=== PATIENT | female | born 1995 | race Caucasian/White ===

== ENCOUNTER → 2022-08-29 07:41 | Outpatient (CLI) | payer OTHER, SELFPAY ==
--- NOTE | 2022-08-29 07:47 | DI.US.S_ITS ---
LIMITED ULTRASOUND OF LEFT BREAST: 08/29/2022 CLINICAL: Lump on left breast. No prior exams were available for comparison. Color flow and real-time ultrasound of the left breast 11-2 o'clock region were performed. Rangel scale images of the real-time examination were reviewed. No significant abnormalities were seen sonographically in the left breast in the regions of concern. Scattered areas of fibroglandular tissue. IMPRESSION: NEGATIVE There is no sonographic evidence of malignancy. Exam findings were conveyed to the patient. Patient is advised to monitor for significant change. Clinical follow-up as needed. Recommend screening mammogram, usually to commence at age 40. This exam was interpreted at Station ID: [id number]. Electronically Signed By: Nate Oviedo M.D. [facility] [place]/:08/29/2022 08:34:43 letter sent: Normal Exam Ultrasound BI-RADS: 1 Negative
== END ==
PROVIDERS: PCP Family Medicine; Referring Provider Family Medicine; Visit Provider Family Medicine
DX: N63.25 Unspecified lump in the left breast, overlapping quadrants (principal); N60.19 Diffuse cystic mastopathy of unspecified breast
CPT/HCPCS: 76642

== ENCOUNTER → 2022-12-26 15:09 | Outpatient (CLI) | payer OTHER, SELFPAY ==
--- NOTE | 2022-12-26 15:11 | DI.US.S_ITS ---
PROCEDURE: US PELVIC COMPLETE INDICATIONS: hx ovarian cyst TECHNIQUE: Real-time scanning was performed of the pelvic organs, with image documentation. Additional endovaginal scanning was necessary due to incomplete visualization of the adnexal and endometrial structures by transabdominal scanning. COMPARISON: None. FINDINGS: Uterus: Uterus is anteverted and normal in size at 8.3 x 4.1 x 4.9 cm. The myometrium is homogeneous. The endometrium measures 3 mm combined thickness. An IUD is present in the uterine cavity. Ovaries: The right ovary measures 6.8 x 4.4 x 6.1 cm, with a calculated ovarian volume of 94 cc. A simple appearing right ovarian cyst is present measuring 5.9 x 3.6 x 5.4 cm. Blood flow is visualized within the right ovarian parenchyma on Doppler imaging. The left ovary is not visualized. Other: No pathologic free abdominal or pelvic fluid. IMPRESSION: 1. A 5.9 cm simple appearing cyst is present in the right ovary. Per SRU guidelines, imaging follow-up is not necessary for this finding in in asymptomatic patient. However imaging follow-up could be obtained if clinically indicated, for example in 2-6 months or other interval at clinical discretion. Of note, presence of this finding could potentially predispose the patient to adnexal torsion. 2. The left ovary is not visualized, could be related to bowel gas. 3. An IUD is present in the uterine cavity. We strive to produce accurate, complete, and clear reports of imaging services. To assist us in improving patient care, this report was composed using standard report templates and voice recognition software. Therefore, it may contain abnormal punctuation, insertions and/or omissions. Occasional wrong-word or sound-alike substitutions may occur. Though we review the report and make efforts to correct it, we do recommend that the report be read carefully in proper context to recognize any text inaccuracies. Dictated by: Oswaldo Whatley M.D. on 12/26/2022 at 20:08 Approved by: Oswaldo Whatley M.D. on 12/26/2022 at 20:18
== END ==
PROVIDERS: PCP Family Medicine; Referring Provider Student in an Organized Health Care Education/Training Program; Visit Provider Student in an Organized Health Care Education/Training Program
DX: N83.201 Unspecified ovarian cyst, right side (principal)
CPT/HCPCS: 76830; 76856; 93976

== ENCOUNTER → 2023-02-04 15:53 | Outpatient (CLI) | payer OTHER, SELFPAY ==
[2023-02-04 17:39] LABS: Add Manual Diff / Slide Review NO; Basophils Absolute Auto 100 /uL (0-100); Eosinophils Absolute Auto 200 /uL (0-450); Eosinophils Percent Auto 1.6 % (2-4); Hematocrit 44.6 % (36-46); Hemoglobin 15.5 g/dL (12.0-16.0); Lymphocytes Absolute Auto 2900 /uL (1100-4500); Lymphocytes Percent Auto 24.9 % (25-40); Mean Corpuscular HGB Conc 34.7 % (30-36); Mean Corpuscular Hemoglobin 29.5 PG (26-34); Mean Corpuscular Volume 85.1 fL (80-100); Monocytes Absolute Auto 700 /uL (0-900); Monocytes Percent Auto 5.6 % (3-14); Neutrophils Absolute Auto 7900 /uL (1500-7000); Neutrophils Percent Auto 66.9 % (50-75); Platelet Count 283 X10^3/uL (150-400); Red Blood Cell Count 5.24 X10^6/uL (4.0-5.2); Red Cell Distribution Width 12.9 % (11.6-14.8); White Blood Cell Count 11.8 X10^3/uL (4.5-11.0)
== END ==
PROVIDERS: PCP Family Medicine; Referring Provider Student in an Organized Health Care Education/Training Program; Visit Provider Student in an Organized Health Care Education/Training Program
DX: Z31.69 Encounter for other general counseling and advice on procreation (principal)
CPT/HCPCS: 85025

== ENCOUNTER → 2023-09-11 10:32 | Outpatient (CLI) | payer OTHER, SELFPAY ==
[2023-09-11 11:44] LABS: Appearance Urine UA SL CLOUDY; Bilirubin Urine UA NEGATIVE (NEGATIVE); Color Urine UA YELLOW; Glucose Urine UA NEGATIVE (Negative); Ketones Urine UA TRACE (NEGATIVE); Leukocyte Esterase Urine UA 1+ (NEGATIVE); Nitrite Urine UA NEGATIVE (Negative); Occult Blood Urine UA NEGATIVE (Negative); Protein Urine UA NEGATIVE (Negative); Urobilinogen Urine UA 0.2 E.U./dL (0.2)
[2023-09-11 11:52] LABS: pH Urine UA 6.5 (4.5-8.0)
[2023-09-11 11:54] LABS: Add Manual Diff / Slide Review NO; Basophils Absolute Auto 0 /uL (0-100); Basophils Percent Auto 0.3 % (0-2); Eosinophils Absolute Auto 200 /uL (0-450); Eosinophils Percent Auto 1.8 % (2-4); Hematocrit 38.2 % (36-46); Hemoglobin 13.2 g/dL (12.0-16.0); Lymphocytes Absolute Auto 2000 /uL (1100-4500); Lymphocytes Percent Auto 17.3 % (25-40); Mean Corpuscular HGB Conc 34.7 % (30-36); Mean Corpuscular Hemoglobin 29.7 PG (26-34); Mean Corpuscular Volume 85.7 fL (80-100); Monocytes Absolute Auto 500 /uL (0-900); Monocytes Percent Auto 3.9 % (3-14); Neutrophils Absolute Auto 8900 /uL (1500-7000); Neutrophils Percent Auto 76.7 % (50-75); Platelet Count 218 X10^3/uL (150-400); Red Blood Cell Count 4.45 X10^6/uL (4.0-5.2); Red Cell Distribution Width 13.2 % (11.6-14.8); White Blood Cell Count 11.6 X10^3/uL (4.5-11.0)
[2023-09-11 12:00] LABS: Bacteria Urine Few (2-10); RBC Urine 1-5/HPF (0-5/HPF); Squamous Epithelial Cell Urine 5-10 /HPF (0-5/HPF); Urine Volume 10mL (spun); WBC Urine 5-10/HPF (0-5/HPF)
[2023-09-11 12:01] LABS: Mucus Urine 2+ (Negative)
[2023-09-12 06:14] LABS: RPR Screen Non Reactive (Non Reactive)
[2023-09-12 08:12] LABS: Varicella IgG Antibody 1728 index (Immune >165)
== END ==
LOC: LAB 10:33
PROVIDERS: PCP Family Medicine; Referring Provider Student in an Organized Health Care Education/Training Program; Visit Provider Student in an Organized Health Care Education/Training Program
DX: Z34.00 Encounter for supervision of normal first pregnancy, unspecified trimester (principal)
CPT/HCPCS: 36415; 80055; 81003; 81015; 86787; 86803; 86850; 86900; 86901; 87086; 87389

== ENCOUNTER → 2023-11-16 12:36 | Outpatient (CLI) | payer OTHER, SELFPAY ==
--- NOTE | 2023-11-16 12:37 | DI.US.S_ITS ---
PROCEDURE: US OB >= 14 WEEKS FETUS INDICATIONS: 20 week anatomy Scan OUTSIDE/PRIOR DATING DATA: The calculations are made using the FAWAD of 04/03/2024. TECHNIQUE: Real-time scanning was performed of the fetus, with image documentation and biometric measurements. Endovaginal scanning: Not performed COMPARISON: None. FINDINGS: General: A single living intrauterine gestation is present. Presentation: Variable. Placenta: Placental position is anterior , without previa. Amniotic fluid index: 12.8 cm, normal range is 5-24 cm. Single deepest vertical pocket is 5.2 cm. heart rate: 163 beats per minute. Maternal cervical canal: 5.6 cm long. Normal lower limit is 2.5 cm. biometrics: Biparietal diameter: 4.6 cm, 19 weeks 6 days Head circumference: 16.9 cm, 19 weeks 4 days Abdominal circumference: 16.4 cm, 21 weeks 3 days Femur length: 3.4 cm, 20 weeks 3 days Clinically estimated gestational age: 20 weeks 1 day Composite gestational age from present scan: 20 weeks 2 days Estimated weight and percentile: 379 g, 82 percentile Anatomic survey: Neuro: Ventricles are non-dilated at less than 10 mm. Cisterna magna is normal at 3-11 mm. Cerebellum is normal in size and morphology. Nuchal skin fold: Normal at less than 6 mm between 14-21 weeks gestational age. Face: Nose and lips, facial profile are normal. Spine: No evidence for spina bifida. Heart: 4-chambered heart is present, with normal ventricular outflow tracts. Diaphragm: Diaphragm is intact. Stomach: Left-sided stomach is present. Kidneys: No hydronephrosis. Normal is less than 5 mm in 2nd trimester, less than 7 mm in 3rd trimester. Cord: 3-vessel cord has orthotopic insertion. Bladder: Normal in size. Extremities: All 4 extremities identified. IMPRESSION: Single living intrauterine at twenty weeks 1 day, FAWAD 04/03/2024. Estimated weight 339 g, 82 percentile. Normal anatomy survey. We strive to produce accurate, complete, and clear reports of imaging services. To assist us in improving patient care, this report was composed using standard report templates and voice recognition software. Therefore, it may contain abnormal punctuation, insertions and/or omissions. Occasional wrong-word or sound-alike substitutions may occur. Though we review the report and make efforts to correct it, we do recommend that the report be read carefully in proper context to recognize any text inaccuracies. Dictated by: Mack Perry M.D. on 11/17/2023 at 10:28 Approved by: Mack Perry M.D. on 11/17/2023 at 10:33
== END ==
PROVIDERS: PCP Family Medicine; Referring Provider Student in an Organized Health Care Education/Training Program; Visit Provider Student in an Organized Health Care Education/Training Program
DX: Z36.89 Encounter for other specified antenatal screening (principal); Z3A.20 20 weeks gestation of pregnancy
CPT/HCPCS: 76811

== ENCOUNTER → 2023-12-18 10:50 | Outpatient (CLI) | payer OTHER, SELFPAY ==
[2023-12-18 13:08] LABS: Hemoglobin 13.2 g/dL (12.0-16.0)
[2023-12-18 13:26] LABS: GTT (PREG) 1 Hour PP 50gm Dose 93 mg/dL (76-139)
== END ==
PROVIDERS: PCP Family Medicine; Referring Provider Student in an Organized Health Care Education/Training Program; Visit Provider Student in an Organized Health Care Education/Training Program
DX: Z34.90 Encounter for supervision of normal pregnancy, unspecified, unspecified trimester (principal); Z3A.24 24 weeks gestation of pregnancy
CPT/HCPCS: 36415; 82950; 85014; 85018

== ENCOUNTER → 2024-01-30 08:05 | Outpatient (CLI) | payer OTHER, SELFPAY ==
[2024-01-30 08:55] LABS: Add Manual Diff / Slide Review NO; Basophils Absolute Auto 0 /uL (0-100); Basophils Percent Auto 0.5 % (0-2); Eosinophils Absolute Auto 300 /uL (0-450); Eosinophils Percent Auto 2.6 % (2-4); Hemoglobin 13.8 g/dL (12.0-16.0); Lymphocytes Absolute Auto 2300 /uL (1100-4500); Lymphocytes Percent Auto 22.3 % (25-40); Mean Corpuscular HGB Conc 34.5 % (30-36); Mean Corpuscular Hemoglobin 30.7 PG (26-34); Monocytes Absolute Auto 400 /uL (0-900); Monocytes Percent Auto 4.3 % (3-14); Neutrophils Absolute Auto 7200 /uL (1500-7000); Neutrophils Percent Auto 70.3 % (50-75); Platelet Count 219 X10^3/uL (150-400); Red Blood Cell Count 4.49 X10^6/uL (4.0-5.2); Red Cell Distribution Width 13.9 % (11.6-14.8); White Blood Cell Count 10.2 X10^3/uL (4.5-11.0)
[2024-01-30 09:13] LABS: HEMOLYSIS < 15 (0-50); Iron 83 ug/dL (37-170)
[2024-01-30 09:24] LABS: Alanine Aminotransferase 13 IU/L (<35); Albumin 3.6 g/dL (3.5-5.0); Albumin Globulin Ratio 1.5 (1.0-2.8); Alkaline Phosphatase 90 U/L (38-126); Aspartate Aminotransferase 18 IU/L (14-36); Bilirubin Total 0.5 mg/dL (0.2-1.3); Blood Urea Nitrogen 4 mg/dL (7-17); Calcium 9.2 mg/dL (8.4-10.2); Carbon Dioxide 21 mmol/L (22-32); Chloride 108 mmol/L (98-107); Estimated Glomerular Filt Rate > 60 mL/min (>60); Globulin 2.4 g/dL (1.7-4.1); Glucose 88 mg/dL (70-100); HEMOLYSIS < 15 (0-50); Sodium 134 mmol/L (137-145)
[2024-01-30 09:25] LABS: Percent Iron Saturation 19 % (15-50); Total Iron Binding Capacity 438 ug/dL (265-497); Transferrin 371 mg/dL (206-381)
[2024-01-30 09:31] LABS: Creatinine Urine Random 17.97 mg/dL; Protein (Total) Urine Random 18 mg/dL (0-12)
[2024-01-30 09:55] LABS: Ferritin 11 ng/mL (6-137)
== END ==
PROVIDERS: PCP Family Medicine; Referring Provider Student in an Organized Health Care Education/Training Program; Visit Provider Student in an Organized Health Care Education/Training Program
DX: O16.3 Unspecified maternal hypertension, third trimester (principal); F50.83 Pica in adults; Z3A.30 30 weeks gestation of pregnancy
CPT/HCPCS: 36415; 80053; 82570; 82728; 83540; 83550; 84156; 85025

== ENCOUNTER → 2024-02-12 13:46 | Outpatient (CLI) | payer OTHER, SELFPAY ==
[2024-02-12 15:23] LABS: Alanine Aminotransferase 15 IU/L (<35); Albumin 3.3 g/dL (3.5-5.0); Albumin Globulin Ratio 1.3 (1.0-2.8); Alkaline Phosphatase 94 U/L (38-126); Aspartate Aminotransferase 21 IU/L (14-36); BUN Creatinine Ratio 9.6 (6-22); Bilirubin Total 0.5 mg/dL (0.2-1.3); Blood Urea Nitrogen 5 mg/dL (7-17); Calcium 9.4 mg/dL (8.4-10.2); Carbon Dioxide 21 mmol/L (22-32); Chloride 106 mmol/L (98-107); Estimated Glomerular Filt Rate > 60 mL/min (>60); Globulin 2.6 g/dL (1.7-4.1); Glucose 87 mg/dL (70-100); HEMOLYSIS < 15 (0-50); Potassium 3.9 mmol/L (3.4-5.1); Sodium 132 mmol/L (137-145); Total Protein 5.9 g/dL (6.3-8.2)
== END ==
PROVIDERS: PCP Family Medicine; Referring Provider Student in an Organized Health Care Education/Training Program; Visit Provider Student in an Organized Health Care Education/Training Program
DX: O26.899 Other specified pregnancy related conditions, unspecified trimester (principal); R10.11 Right upper quadrant pain
CPT/HCPCS: 36415; 80053

== ENCOUNTER → 2024-02-26 11:02 | Outpatient (CLI) | payer OTHER, SELFPAY ==
[2024-02-26 12:57] LABS: Add Manual Diff / Slide Review NO; Basophils Absolute Auto 0 /uL (0-100); Basophils Percent Auto 0.4 % (0-2); Eosinophils Absolute Auto 200 /uL (0-450); Eosinophils Percent Auto 1.9 % (2-4); Hematocrit 39.4 % (36-46); Hemoglobin 13.7 g/dL (12.0-16.0); Lymphocytes Absolute Auto 2000 /uL (1100-4500); Lymphocytes Percent Auto 18.3 % (25-40); Mean Corpuscular HGB Conc 34.7 % (30-36); Mean Corpuscular Volume 89.4 fL (80-100); Monocytes Absolute Auto 600 /uL (0-900); Monocytes Percent Auto 5.3 % (3-14); Neutrophils Absolute Auto 8100 /uL (1500-7000); Neutrophils Percent Auto 74.1 % (50-75); Platelet Count 211 X10^3/uL (150-400)
[2024-02-26 13:01] LABS: Alanine Aminotransferase 17 IU/L (<35); Albumin 3.7 g/dL (3.5-5.0); Albumin Globulin Ratio 1.4 (1.0-2.8); Alkaline Phosphatase 127 U/L (38-126); Aspartate Aminotransferase 21 IU/L (14-36); BUN Creatinine Ratio 7.8 (6-22); Bilirubin Total 0.5 mg/dL (0.2-1.3); Blood Urea Nitrogen 4 mg/dL (7-17); Calcium 9.1 mg/dL (8.4-10.2); Carbon Dioxide 21 mmol/L (22-32); Chloride 108 mmol/L (98-107); Estimated Glomerular Filt Rate > 60 mL/min (>60); Globulin 2.7 g/dL (1.7-4.1); Glucose 85 mg/dL (70-100); HEMOLYSIS < 15 (0-50); Potassium 3.3 mmol/L (3.4-5.1); Sodium 135 mmol/L (137-145); Total Protein 6.4 g/dL (6.3-8.2)
[2024-02-26 14:33] LABS: Creatinine Urine Random 73.14 mg/dL; Protein (Total) Urine Random 21 mg/dL (0-12); Protein Creatinine Ratio Urine 0.28 GRAM/24H
== END ==
PROVIDERS: PCP Family Medicine; Referring Provider Family Medicine; Visit Provider Family Medicine
DX: Z34.00 Encounter for supervision of normal first pregnancy, unspecified trimester (principal)
CPT/HCPCS: 36415; 80053; 82570; 84156; 85025

== ENCOUNTER → 2024-03-11 10:40 | Outpatient (CLI) | payer OTHER, SELFPAY ==
[2024-03-11 11:58] LABS: Strep Grp B PCR NEG for Grp B Strep
== END ==
PROVIDERS: PCP Family Medicine; Visit Provider Student in an Organized Health Care Education/Training Program
DX: Z34.93 Encounter for supervision of normal pregnancy, unspecified, third trimester (principal); Z3A.36 36 weeks gestation of pregnancy
CPT/HCPCS: 87081; 87653

== ENCOUNTER 2024-03-11 10:49 | Observation (INO) | payer OTHER, SELFPAY ==
[2024-03-11 11:49] LABS: Alanine Aminotransferase 19 IU/L (<35); Albumin 3.7 g/dL (3.5-5.0); Albumin Globulin Ratio 1.3 (1.0-2.8); Alkaline Phosphatase 139 U/L (38-126); Aspartate Aminotransferase 23 IU/L (14-36); BUN Creatinine Ratio 11.8 (6-22); Bilirubin Total 0.5 mg/dL (0.2-1.3); Blood Urea Nitrogen 6 mg/dL (7-17); Calcium 9.2 mg/dL (8.4-10.2); Carbon Dioxide 20 mmol/L (22-32); Chloride 108 mmol/L (98-107); Estimated Glomerular Filt Rate > 60 mL/min (>60); Globulin 2.9 g/dL (1.7-4.1); Glucose 94 mg/dL (70-100); HEMOLYSIS < 15 (0-50); Potassium 3.8 mmol/L (3.4-5.1); Sodium 134 mmol/L (137-145); Total Protein 6.6 g/dL (6.3-8.2); Uric Acid 5.1 mg/dL (2.5-6.2)
[2024-03-11 11:50] LABS: Creatinine Urine Random 19.53 mg/dL; Protein (Total) Urine Random 20 mg/dL (0-12); Protein Creatinine Ratio Urine 1.02 GRAM/24H
[2024-03-11 12:11] VITALS: TEMP 36.8
[2024-03-11] MEDS: ACETAMINOPHEN 325 MG TABLET 650 MG PO (12:11)
[2024-03-11 12:14] LABS: Add Manual Diff / Slide Review NO; Basophils Absolute Auto 0 /uL (0-100); Basophils Percent Auto 0.3 % (0-2); Eosinophils Absolute Auto 100 /uL (0-450); Eosinophils Percent Auto 0.6 % (2-4); Hematocrit 40.2 % (36-46); Hemoglobin 13.7 g/dL (12.0-16.0); Lymphocytes Absolute Auto 2000 /uL (1100-4500); Mean Corpuscular HGB Conc 34.1 % (30-36); Mean Corpuscular Hemoglobin 30.5 PG (26-34); Mean Corpuscular Volume 89.5 fL (80-100); Monocytes Absolute Auto 600 /uL (0-900); Monocytes Percent Auto 5.7 % (3-14); Neutrophils Absolute Auto 8200 /uL (1500-7000); Neutrophils Percent Auto 75.4 % (50-75); Platelet Count 235 X10^3/uL (150-400); Red Blood Cell Count 4.49 X10^6/uL (4.0-5.2); Red Cell Distribution Width 13.3 % (11.6-14.8); White Blood Cell Count 10.9 X10^3/uL (4.5-11.0)
--- NOTE | 2024-03-11 13:31 | P.TNLD_ITS ---
Visit Information Visit Information Date of evaluation: 03/11/24 Primary OB Provider: Janette Wall Reason for Evaluation: Yes non-stress test and Yes other Comments/Additional reasons for admission: Pre-e rule out Vital Signs Vital Signs: Vital Signs - 8 hr 03/11/24 12:11 Temperature 98.2 F [facility] Medical History (Updated 02/12/24 @ 10:33 by Janette Wall MD) Wrist tendonitis (~2012) Ovarian cyst (~2018) Shingles Surgical History (Updated 09/29/23 @ 19:59 by Dipti Barry) Anesthesia History of tonsillectomy History of surgery on right wrist History of removal of skin mole History of tympanostomy Family History (Updated 09/29/23 @ 20:02 by Dipti Barry) Father Hyperlipidemia Hypertension History of heart disease Grandmother Breast cancer Skin cancer Anxiety Depression Mother Skin cancer Joint replaced Degenerative disc disease Depression Anxiety Mental health problem Grandfather Depression Anxiety Lung cancer Mental health problem Grandmother History of heart disease Hypertension Social History marital status: number of children: 0 household members: spouse lives independently: No caregiver/support person: No housing: house pets and animals: Yes (dog) education level: master's degree occupational status: employed current occupational exposures/hazards: No special katarzyna needs: No travel history: recent seatbelt use: always water heater temp set < 120 deg: Yes working smoke detector in home: Yes fire extinguisher in home: Yes carbon monox detector in home: Yes firearms in home: No do you feel safe at home: Yes Smoking Status: Never smoker second hand exposure: No alcohol intake: former substance use type: does not use during the past year weight has: remained stable well-balanced diet: daily or most days daily servings fruits/ve-4 caffeine: Yes Type(s) of exercise: walking, aerobic and weight lifting frequency: 5-6 times per week Review of Systems Review of Systems Narrative: Mild headache Exam Vital Signs (past 8 hours): - 03/11/24 12:11 Temperature 98.2 F Objective Labs 03/11/24 11:00 03/11/24 11:00 Labs: Laboratory Results - last 24 hr 03/11/24 03/11/24 03/11/24 10:55 10:56 11:00 WBC 10.9 RBC 4.49 Hgb 13.7 Hct 40.2 MCV 89.5 MCH 30.5 MCHC 34.1 RDW 13.3 Plt Count 235 Neut % (Auto) 75.4 H Lymph % (Auto) 18.0 L [place] % (Auto) 5.7 Eos % (Auto) 0.6 L Baso % (Auto) 0.3 Neut # (Auto) 8200 H Lymph # (Auto) 2000 [place] # (Auto) 600 Eos # (Auto) 100 Baso # (Auto) 0 Sodium 134 L Potassium 3.8 Chloride 108 H Carbon Dioxide 20 L BUN 6 L Creatinine 0.51 L Estimated GFR > 60 BUN/Creatinine Ratio 11.8 Glucose 94 Uric Acid 5.1 Calcium Total Bilirubin AST ALT Alkaline Phosphatase Total Protein Albumin Globulin Albumin/Globulin Ratio U Random Total Protein 20 H TNP Urine Creatinine 19.53 TNP Protein/Creatinin Ratio 1.02 TNP 03/11/24 11:00 WBC RBC Hgb Hct MCV MCH MCHC RDW Plt Count Neut % (Auto) Lymph % (Auto) [place] % (Auto) Eos % (Auto) Baso % (Auto) Neut # (Auto) Lymph # (Auto) [place] # (Auto) Eos # (Auto) Baso # (Auto) Sodium Potassium Chloride Carbon Dioxide BUN Creatinine Estimated GFR BUN/Creatinine Ratio Glucose Uric Acid Cancelled Calcium 9.2 Total Bilirubin 0.5 AST 23 ALT 19 Alkaline Phosphatase 139 H Total Protein 6.6 Albumin 3.7 Globulin 2.9 Albumin/Globulin Ratio 1.3 U Random Total Protein Urine Creatinine Protein/Creatinin Ratio Evaluation Evaluation Baseline heart rate: 135 Variability: Average (6-10) monitor accelerations: Present Monitor Decelerations: Absent Status: Category l Diagnosis, Plan/Disposition Plan/Disposition Plan: 28 yo G1 at 36w5d with elevated BP in clinic. Serial blood pressures in L&D normal. Mild headache not improved with tylenol. Labs wnl except for proteinuria that was noted previously. -safe for discharge -will obtain NST on Thursday, next appt Sunday 03/18 -patient to check blood pressures at home, return precautions given OB Disposition: home
== END 2024-03-11 13:31 | disposition home or self-care (01) ==
PROVIDERS: Admitting Provider Student in an Organized Health Care Education/Training Program; PCP Family Medicine; Referring Provider Student in an Organized Health Care Education/Training Program; Visit Provider Student in an Organized Health Care Education/Training Program
DX: O26.893 Other specified pregnancy related conditions, third trimester (principal); R03.0 Elevated blood-pressure reading, without diagnosis of hypertension; R51.9 Headache, unspecified; R80.9 Proteinuria, unspecified; Z3A.36 36 weeks gestation of pregnancy
CPT/HCPCS: 59025; 59050; 80053; 82570; 84156; 84550; 85025; 87081; 87653; G0378; G0379

== ENCOUNTER 2024-03-15 08:50 | Observation (INO) | payer OTHER, SELFPAY | END 2024-03-15 09:32 | disposition home or self-care (01) | PROVIDERS: Admitting Provider Student in an Organized Health Care Education/Training Program; PCP Family Medicine; Referring Provider Student in an Organized Health Care Education/Training Program; Visit Provider Student in an Organized Health Care Education/Training Program | DX: Z34.03 Encounter for supervision of normal first pregnancy, third trimester (principal); Z3A.37 37 weeks gestation of pregnancy | CPT/HCPCS: 59025; G0378; G0379 ==

== ENCOUNTER 2024-03-18 10:36 | Outpatient (CLI) | payer OTHER, SELFPAY ==
--- NOTE | 2024-03-18 11:10 | DI.US.S_ITS ---
PROCEDURE: US OB BIOPHYSICAL PROFILE INDICATIONS: Pre-eclampsia OUTSIDE/PRIOR DATING DATA: The calculations are made using the ultrasound FAWAD of 04/03/2024. TECHNIQUE: Real-time scanning was performed of the fetus, with image documentation. Biophysical profile was also obtained. Endovaginal scanning: Not performed COMPARISON: [facility], US OB >= 14 WEEKS FETUS, 11/16/2023, 13:08. FINDINGS: General: A single living intrauterine gestation is present. Presentation: Vertex. Placenta: Placental position is anterior, without previa. Amniotic fluid index: 8.7 cm, normal range is 5-24 cm. Single deepest vertical pocket is 5.7 cm. heart rate: 157 beats per minute. Maternal cervical canal: Not well seen. Clinically estimated gestational age: 37 weeks 5 days Biophysical profile: Tone: 2 points. Movement: 2 points. Respiration: 2 points. Largest pocket of fluid: 2 points. IMPRESSION: 1. Rico living intrauterine at 37 weeks 5 days based on prior dating. 2. Normal placenta and amniotic fluid. 3. Normal biophysical profile. Score 8/8. We strive to produce accurate, complete, and clear reports of imaging services. To assist us in improving patient care, this report was composed using standard report templates and voice recognition software. Therefore, it may contain abnormal punctuation, insertions and/or omissions. Occasional wrong-word or sound-alike substitutions may occur. Though we review the report and make efforts to correct it, we do recommend that the report be read carefully in proper context to recognize any text inaccuracies. Dictated by: Nate Oviedo M.D. on 03/18/2024 at 11:56 Approved by: Nate Oviedo M.D. on 03/18/2024 at 12:01
[2024-03-18 11:32] LABS: Add Manual Diff / Slide Review NO; Basophils Absolute Auto 0 /uL (0-100); Basophils Percent Auto 0.4 % (0-2); Eosinophils Absolute Auto 100 /uL (0-450); Eosinophils Percent Auto 1.4 % (2-4); Hematocrit 38.2 % (36-46); Hemoglobin 13.6 g/dL (12.0-16.0); Lymphocytes Absolute Auto 1900 /uL (1100-4500); Lymphocytes Percent Auto 18.8 % (25-40); Mean Corpuscular HGB Conc 35.5 % (30-36); Mean Corpuscular Hemoglobin 31.4 PG (26-34); Mean Corpuscular Volume 88.5 fL (80-100); Monocytes Absolute Auto 600 /uL (0-900); Monocytes Percent Auto 5.8 % (3-14); Neutrophils Absolute Auto 7500 /uL (1500-7000); Neutrophils Percent Auto 73.6 % (50-75); Platelet Count 205 X10^3/uL (150-400); Red Blood Cell Count 4.32 X10^6/uL (4.0-5.2); Red Cell Distribution Width 13.6 % (11.6-14.8); White Blood Cell Count 10.2 X10^3/uL (4.5-11.0)
[2024-03-18 11:56] LABS: Alanine Aminotransferase 16 IU/L (<35); Albumin 3.6 g/dL (3.5-5.0); Albumin Globulin Ratio 1.4 (1.0-2.8); Alkaline Phosphatase 131 U/L (38-126); Aspartate Aminotransferase 25 IU/L (14-36); Bilirubin Total 0.3 mg/dL (0.2-1.3); Blood Urea Nitrogen 6 mg/dL (7-17); Carbon Dioxide 19 mmol/L (22-32); Chloride 109 mmol/L (98-107); Estimated Glomerular Filt Rate > 60 mL/min (>60); Globulin 2.6 g/dL (1.7-4.1); Glucose 89 mg/dL (70-100); HEMOLYSIS < 15 (0-50); Potassium 3.7 mmol/L (3.4-5.1); Sodium 133 mmol/L (137-145); Total Protein 6.2 g/dL (6.3-8.2)
[2024-03-18 12:11] LABS: Creatinine Urine Random 243.71 mg/dL; Protein (Total) Urine Random 23 mg/dL (0-12); Protein Creatinine Ratio Urine 0.09 GRAM/24H
== END 2024-03-18 11:38 | disposition home or self-care (01) ==
LOC: LABOR 11:15 → OB 03-21 06:20
PROVIDERS: PCP Family Medicine; Referring Provider Student in an Organized Health Care Education/Training Program; Visit Provider Student in an Organized Health Care Education/Training Program
DX: O13.3 Gestational [pregnancy-induced] hypertension without significant proteinuria, third trimester (principal); Z3A.37 37 weeks gestation of pregnancy
CPT/HCPCS: 36415; 59025; 76819; 80053; 82570; 84156; 85025; G0378; G0379

== ENCOUNTER 2024-03-22 11:50 | Outpatient (CLI) | payer OTHER, SELFPAY | END 2024-03-22 12:27 | disposition home or self-care (01) | LOC: OB 03-24 06:10 | PROVIDERS: PCP Family Medicine; Referring Provider Student in an Organized Health Care Education/Training Program; Visit Provider Student in an Organized Health Care Education/Training Program | DX: O13.3 Gestational [pregnancy-induced] hypertension without significant proteinuria, third trimester (principal); Z3A.38 38 weeks gestation of pregnancy | CPT/HCPCS: 59025; G0378; G0379 ==

== ENCOUNTER 2024-03-25 11:23 | Observation (INO) | payer OTHER, SELFPAY ==
[2024-03-25 11:52] LABS: Add Manual Diff / Slide Review NO; Basophils Absolute Auto 100 /uL (0-100); Basophils Percent Auto 0.6 % (0-2); Eosinophils Absolute Auto 200 /uL (0-450); Eosinophils Percent Auto 1.9 % (2-4); Hematocrit 40.7 % (36-46); Hemoglobin 14.1 g/dL (12.0-16.0); Lymphocytes Absolute Auto 2000 /uL (1100-4500); Lymphocytes Percent Auto 20.8 % (25-40); Mean Corpuscular HGB Conc 34.7 % (30-36); Mean Corpuscular Volume 89.1 fL (80-100); Monocytes Absolute Auto 400 /uL (0-900); Monocytes Percent Auto 4.4 % (3-14); Neutrophils Absolute Auto 7100 /uL (1500-7000); Neutrophils Percent Auto 72.3 % (50-75); Platelet Count 205 X10^3/uL (150-400); Red Blood Cell Count 4.56 X10^6/uL (4.0-5.2); Red Cell Distribution Width 13.4 % (11.6-14.8); White Blood Cell Count 9.8 X10^3/uL (4.5-11.0)
[2024-03-25 12:05] LABS: Alanine Aminotransferase 14 IU/L (<35); Albumin 3.8 g/dL (3.5-5.0); Albumin Globulin Ratio 1.3 (1.0-2.8); Alkaline Phosphatase 150 U/L (38-126); Aspartate Aminotransferase 24 IU/L (14-36); BUN Creatinine Ratio 11.3 (6-22); Bilirubin Total 0.4 mg/dL (0.2-1.3); Blood Urea Nitrogen 6 mg/dL (7-17); Calcium 9.4 mg/dL (8.4-10.2); Carbon Dioxide 20 mmol/L (22-32); Chloride 106 mmol/L (98-107); Estimated Glomerular Filt Rate > 60 mL/min (>60); Globulin 2.9 g/dL (1.7-4.1); Glucose 92 mg/dL (70-100); HEMOLYSIS < 15 (0-50); Sodium 133 mmol/L (137-145); Total Protein 6.7 g/dL (6.3-8.2); Uric Acid 5.1 mg/dL (2.5-6.2)
[2024-03-25 12:57] LABS: Creatinine Urine Random 124.87 mg/dL; Protein (Total) Urine Random 12 mg/dL (0-12); Protein Creatinine Ratio Urine 0.09 GRAM/24H
== END 2024-03-25 12:52 | disposition home or self-care (01) ==
PROVIDERS: Admitting Provider Student in an Organized Health Care Education/Training Program; PCP Family Medicine; Referring Provider Student in an Organized Health Care Education/Training Program; Visit Provider Student in an Organized Health Care Education/Training Program
DX: O13.3 Gestational [pregnancy-induced] hypertension without significant proteinuria, third trimester (principal); Z3A.38 38 weeks gestation of pregnancy
CPT/HCPCS: 36415; 59025; 80053; 84550; 85025; G0378; G0379

== ENCOUNTER 2024-03-27 18:56 | Inpatient (IN) | payer OTHER, SELFPAY ==
[2024-03-27 19:28] VITALS: BP 119/80
[2024-03-27 20:09] LABS: Add Manual Diff / Slide Review NO; Basophils Absolute Auto 100 /uL (0-100); Basophils Percent Auto 1.1 % (0-2); Eosinophils Absolute Auto 200 /uL (0-450); Eosinophils Percent Auto 1.6 % (2-4); Hematocrit 39.8 % (36-46); Hemoglobin 13.9 g/dL (12.0-16.0); Lymphocytes Absolute Auto 3100 /uL (1100-4500); Mean Corpuscular Hemoglobin 30.7 PG (26-34); Mean Corpuscular Volume 87.8 fL (80-100); Monocytes Absolute Auto 600 /uL (0-900); Monocytes Percent Auto 5.3 % (3-14); Neutrophils Absolute Auto 7200 /uL (1500-7000); Platelet Count 213 X10^3/uL (150-400); Red Blood Cell Count 4.53 X10^6/uL (4.0-5.2); Red Cell Distribution Width 13.5 % (11.6-14.8); White Blood Cell Count 11.2 X10^3/uL (4.5-11.0)
[2024-03-27 20:13] LABS: Alanine Aminotransferase 14 IU/L (<35); Albumin 3.7 g/dL (3.5-5.0); Albumin Globulin Ratio 1.3 (1.0-2.8); Alkaline Phosphatase 147 U/L (38-126); Aspartate Aminotransferase 22 IU/L (14-36); BUN Creatinine Ratio 17.2 (6-22); Bilirubin Total 0.3 mg/dL (0.2-1.3); Blood Urea Nitrogen 10 mg/dL (7-17); Calcium 9.9 mg/dL (8.4-10.2); Carbon Dioxide 22 mmol/L (22-32); Chloride 106 mmol/L (98-107); Estimated Glomerular Filt Rate > 60 mL/min (>60); Globulin 2.8 g/dL (1.7-4.1); Glucose 89 mg/dL (70-100); HEMOLYSIS < 15 (0-50); Potassium 3.5 mmol/L (3.4-5.1); Sodium 135 mmol/L (137-145); Total Protein 6.5 g/dL (6.3-8.2)
[2024-03-27 20:22] LABS: Creatinine Urine Random 27.83 mg/dL; Protein (Total) Urine Random 20 mg/dL (0-12); Protein Creatinine Ratio Urine 0.71 GRAM/24H
[2024-03-27] MEDS: miSOPROStoL 25 MCG TABLET VAG (20:48)
--- NOTE | 2024-03-27 20:48 | PM.OBHP.IH.1 ---
OB HPI Date/Time Date of admission: 03/27/24 Date Patient Seen: 03/27/24 Time Patient Seen: 08:30 History of Present Condition Chief complaint: induction FAWAD Calculator Estimated Delivery Date Method Current WG Current Estimate 04/03/24 LMP (Certain) 39w 0d : 1 Para: 0 Narrative: This is a 28 yo G1 at 39w0d here for IOL for gestational hypertension. Patient with history of two elevated blood pressures during antepartum period (one at 30 weeks and one at 36 weeks). BP at 36 weeks elevated to severe range, however was not sustained and all labs wnl. She had BPP and NSTs weekly until 39w0d when we planned for IOL. She is GBS neg. care: good care Dating criteria OB: LMP confirmed by 1st trimester US Ultrasounds: normal 1st trimester US and normal mid trimester US Obstetrical complications: gestational hypertension Medical complications OB: none Indications Indication for induction OB: gestational HTN/pre-eclampsia Preadmission Labs Last OB Lab Results: Blood Type A Positive 03/27/24 19:46 Antibody Screen Negative 03/27/24 19:46 Hct 39.8 % (36-46) 03/27/24 19:46 Hgb 13.9 g/dL (12.0-16.0) 03/27/24 19:46 Hep Bs Antigen Negative s/c (NEGATIVE) 09/11/23 10:45 Hepatitis C Antibody Negative s/c (NEGATIVE) 09/11/23 10:45 Rubella Antibody 53.2 IU/mL (>15) 09/11/23 10:45 VZV IgG Antibody 1728 index (Immune >165) 09/11/23 10:45 Glucose 1 Hr 50 gm 93 mg/dL (76-139) 12/18/23 12:10 Group B Strep (PCR) Neg for grp b strep 03/11/24 10:30 Genetic Screens: Quad screen: Normal Evaluation Evaluation Baseline heart rate: 135 Variability: Average (6-10) monitor accelerations: Present Monitor Decelerations: Absent Contraction Frequency (minutes): 5 Uterine Contraction Intensity: Mild Category of Tracing: Reactive Status: Category l Dilation (cm): 0.5 Effacement (%): 30 Dilation: 1-2 cm Effacement: 0-30% station: -2 Position of cervix: posterior Consistency: medium Wooten score: 3 PFSH Medical History (Updated 02/12/24 @ 10:33 by Janette Wall MD) Wrist tendonitis (~2012) Ovarian cyst (~2018) Shingles Surgical History (Updated 09/29/23 @ 19:59 by iDpti Barry) Anesthesia History of tonsillectomy History of surgery on right wrist History of removal of skin mole History of tympanostomy Family History (Updated 09/29/23 @ 20:02 by Dipti Barry) Father Hyperlipidemia Hypertension History of heart disease Grandmother Breast cancer Skin cancer Anxiety Depression Mother Skin cancer Joint replaced Degenerative disc disease Depression Anxiety Mental health problem Grandfather Depression Anxiety Lung cancer Mental health problem Grandmother History of heart disease Hypertension Social History marital status: number of children: 0 household members: spouse lives independently: No caregiver/support person: No housing: house pets and animals: Yes (dog) education level: master's degree occupational status: employed current occupational exposures/hazards: No special katarzyna needs: No travel history: recent seatbelt use: always water heater temp set < 120 deg: Yes working smoke detector in home: Yes fire extinguisher in home: Yes carbon monox detector in home: Yes firearms in home: No do you feel safe at home: Yes Smoking Status: Never smoker second hand exposure: No alcohol intake: former substance use type: does not use during the past year weight has: remained stable well-balanced diet: daily or most days daily servings fruits/ve-4 caffeine: Yes Type(s) of exercise: walking, aerobic and weight lifting frequency: 5-6 times per week Meds Home Medications and Allergies Allergies Allergy/AdvReac Type Severity Reaction Status Date / Time No Known Drug Allergies Allergy Verified 03/25/24 10:17 Review of Systems Review of Systems ROS: Yes All systems reviewed with the patient and are negative except as otherwise documented Objective Labs 03/27/24 19:46 03/27/24 19:46 Labs: Laboratory Results - last 24 hr 03/27/24 03/27/24 19:30 19:46 WBC 11.2 H RBC 4.53 Hgb 13.9 Hct 39.8 MCV 87.8 MCH 30.7 MCHC 35.0 RDW 13.5 Plt Count 213 Neut % (Auto) 64.0 Lymph % (Auto) 28.0 [place] % (Auto) 5.3 Eos % (Auto) 1.6 L Baso % (Auto) 1.1 Neut # (Auto) 7200 H Lymph # (Auto) 3100 [place] # (Auto) 600 Eos # (Auto) 200 Baso # (Auto) 100 Sodium 135 L Potassium 3.5 Chloride 106 Carbon Dioxide 22 BUN 10 Creatinine 0.58 Estimated GFR > 60 BUN/Creatinine Ratio 17.2 Glucose 89 Calcium 9.9 Total Bilirubin 0.3 AST 22 ALT 14 Alkaline Phosphatase 147 H Total Protein 6.5 Albumin 3.7 Globulin 2.8 Albumin/Globulin Ratio 1.3 U Random Total Protein 20 H Urine Creatinine 27.83 Protein/Creatinin Ratio 0.71 Assessment and Plan Assessment and Plan Assessment and Plan narrative: 28 yo G1 at 39w0d here for IOL for gestational hypertension. GBS neg. Reviewed risks/benefits. Discussed IOL methods. SVE 0.5/30/-2. -CMP/CBC and p/c ratio ordered stat -Maternal blood type A pos -Attempted balloon placement but unable to successfully place, vaginal miso 25 mcg q4hrs Time-Based Coding :: 45 minutes spent with patient and on the chart (including review of chart, obtaining history, exam, reviewing outside data, placing orders, documenting exam and treatment plan, and counseling patient) on 03/27/24.
[2024-03-28] MEDS: miSOPROStoL 25 MCG TABLET VAG (00:45)
[2024-03-28] MEDS: fentaNYL 100 MCG/2 ML INJ 50 MCG IV (02:43)
[2024-03-28] MEDS: LACTATED RINGERS 1,000 ML 100 ML IV (02:44)
--- NOTE | 2024-03-28 04:53 | P.PCN_ITS ---
[facility] <Anna Hammond CRNA - Last Filed: 03/28/24 06:58> Pre-procedure Procedure: Continuous Lumbar Epidural for L&D Attending OB provider: Janette Wall PMH/ROS narrative: G1PO here for IOL d/t gestational hypertension, otherwise healthy, requesting MISA for labor pain. PSH/Anesthesia history narrative: Tonsillectomy, typanostomy, R wrist without anesthesia complication Exam narrative: See pre-anesthesia evaluation form. ASA Class: III Labs: Hct 39.8 % (36-46) 03/27/24 19:46 Plt Count 213 X10^3/uL (150-400) 03/27/24 19:46 Medications: Current Medications Generic Name Dose Route Start Last Admin Trade Name Freq PRN Reason Stop Dose Admin Calcium Carbonate 1,000 mg 03/27/24 19:10 Calcium Carbonate 500 Mg Tab PO Q2HR PRN Dyspepsia Carboprost Tromethamine 250 mcg 03/27/24 19:10 Carboprost 250 Mcg/Ml Ampul IM Q90M PRN Bleeding Diphenhydramine HCl 25 mg 03/28/24 04:50 Diphenhydramine 50 Mg/Ml Vial IV 03/29/24 04:51 Q3HR PRN PRURITUS Fentanyl 50 mcg 03/27/24 19:10 03/28/24 02:43 Fentanyl 100 Mcg/2 Ml Inj IV 50 mcg Q1H PRN Administration Pain, Moderate (4-6) Lactated Ringer's 1,000 mls @ 100 mls/hr 03/27/24 19:15 03/28/24 02:44 Lactated Ringers IV 03/28/24 05:14 100 mls/hr CONT KILEY Administration Oxytocin/Lactated Ringer's 30 unit in 500 mls @ 200 mls/hr 03/27/24 19:10 Oxytocin Premix IV CONT PRN Bleeding Protocol Oxytocin/Lactated Ringer's 30 unit in 500 mls @ 2 mls/hr 03/27/24 19:15 Oxytocin Premix IV TITRATE KILEY Protocol 2 MILLIUNIT/MIN Tranexamic Acid 1,000 mg/ 100 mls @ 600 mls/hr 03/27/24 19:10 Sodium Chloride IV NOW PRN Bleeding Lidocaine HCl 20 ml 03/27/24 19:10 Lidocaine 1% 20 Ml INJ INTRA-OP PRN Post Delivery Methylergonovine Maleate 0.2 mg 03/27/24 19:10 Methylergonovine 0.2 Mg/Ml Vial IM NOW PRN Bleeding Methylergonovine Maleate 0.2 mg 03/27/24 19:10 Methylergonovine 0.2 Mg Tablet PO Q6HR PRN Heavy Bleeding Mineral Oil 30 ml 03/27/24 19:10 Mineral Oil 30 Ml Udc TOP PRN PRN Version Misoprostol 800 mcg 03/27/24 19:10 Misoprostol 200 Mcg Tablet WV NOW PRN Bleeding Misoprostol 25 mcg 03/27/24 19:10 03/28/24 00:45 Misoprostol 25 Mcg Tablet VAG 25 mcg Q4H PRN Administration cervical ripening Misoprostol 400 mcg 03/27/24 19:10 Misoprostol 200 Mcg Tablet SL NOW PRN Bleeding Naloxone HCl 0.2 mg 03/27/24 19:10 Naloxone 0.4 Mg/Ml Vial IV Q2MIN PRN Opiate Reversal Naloxone HCl 0.4 mg 03/28/24 04:50 Naloxone 0.4 Mg/Ml Vial IV Q2MIN PRN Opiate Reversal Ondansetron HCl 4 mg 03/27/24 19:10 Ondansetron 4 Mg/2 Ml Inj IV Q4HR PRN Nausea And Vomiting Ondansetron HCl 4 mg 03/28/24 05:00 Ondansetron 4 Mg/2 Ml Inj IV 03/28/24 09:01 Q4HR KILEY Oxytocin 10 unit 03/27/24 19:10 Oxytocin 10 Unit/Ml Vial IM NOW PRN Bleeding Allergies: Allergies Allergy/AdvReac Type Severity Reaction Status Date / Time No Known Drug Allergies Allergy Verified 03/25/24 10:17 Procedure Insertion date: 03/28/24 Insertion time: 04:32 Prep/Local: 1% lidocaine (5mL to interspace (CHG for skin prep)) Interspace: L1/2 Patient position: sitting Needle: 18 gauge Hustead Loss of resistance with: saline ЮЛИЯ at (cm): 7 Catheter placed at SKIN (cm): 12 Catheter in SPACE (cm): 5 Sensory level: T10 Insertion: No CSF, Yes Blood, No Paresthesia with insertion, No Paresthesia with injection and Yes Test dose reaction Initial Medications TEST DOSE time: 06:00 TEST DOSE: 1.5% lidocaine with epinephrine 1:200k (mL): 3 Infusion INFUSION: 0.125% bupivacaine and with fentanyl 2 mcg/mL Initial rate (mL/hr): 8 Subsequent interventions: * Three epidural catheter placements, see below* 0401: Under sterile technique, first attempt was placed at L4/5 with ЮЛИЯ achi eved at 9cm with steep angle, no clear pop of ligamentum flavum. Blood return in catheter. Flushed with 3mL saline and pulled back to 12 cm. Test dose of 3mL 1.5% lido with 1:200k epi given at 0419 with no tinnitus, metallic taste, or periorbital numbness per patient, however +20BMP HR increase with test dose. D/C'd epidural catheter out of abundance of caution. 0430: After re-prepping, under sterile technique, second attempt was placed at L3/4 with ЮЛИЯ achieved at 7cm with level angle. Clear pop of LF prior to ЮЛИЯ. Again blood return in catheter. Flushed with 3mL saline and pulled back to 12cm. Test dose of 3mL 1.5% lido with 1:200k epi given at 0434 with no tinnitus, metallic taste, or periorbital numbness per patient, however again +20BMP HR increase noted. Decision was made to observe epidural as uptake of test dose was likely vascular from punctured epidural vein. Bolus of 8mL infusate given at 0440 with epidural basal rate set to 6mL/hr. 0500: Patient with unchanged labor pain, unchanged blood pressure. Full cold sensation to bilateral feet. 0505: Lidocaine 2% 5mL bolus to catheter following aspiration on syringe which returned blood. Pt noted periorbital numbness with lidocaine dose. No change to pain or dermatome in 10 minutes. 0515: Chloroprocaine 2% 10mL bolus to catheter. Request for RN to check cervix. Membranes still intact. Dilated to 3cm. 0525: No change with labor pain. However decreased cold sensation to mid calf level. Fentanyl 100mcg + 8mL 0.9% sterile NS bolus to epidural. 0535: Still no change with labor pain. Under sterile technique pulled back on epidural catheter to 11cm. Bolus of 8mL infusate followed by of 5mL lidocaine given with periorbital numbness again. No hemodynamic changes and no changes to pain level in ten minutes. Decision made to remove and replace epidural. 0554: Second catheter removed. Under sterile technique, catheter replaced two levels higher at L1/2. Following clear pop of LF, ЮЛИЯ achieved at 7cm with level angle. Intrathecal dose of 1.0mL MPF 0.25% Bupi given via 27g Pencan needle with instant pain relief and heaviness in legs. Hemodynamically stable. Epidural test dose negative, and no blood return on catheter. 0610: Epidural pump started at 6mL/hr. RN rechecked patient's cervix - has now progressed to 8cm. 0642: Pt c/o L sided pain with contractions. Repositioned on to left side and bolus dose of 10mL infusate given. 0654: States decreased pain sensation down to a 3 with contractions following bolus. Patient provided with her PCEA. Will hand of at bedside to day anesthesiologist. Post-procedure Anesthesia date START: 03/28/24 Anesthesia time START: 03:39 <Cassia Manzo CRNA - Last Filed: 03/28/24 09:08> Post-procedure Anesthesia date END: 03/28/24 Anesthesia time END: 08:02 Post-procedure Anesthesia Assessment: Yes CV function: HR/BP stable, Yes Resp function: RR/sat/airway adequate, Yes Post-op hydration adequate, Yes Pain control adequate, Yes Nausea & vomiting absent, Yes Temperature > 36 C and Yes Mental status appropriate
--- NOTE | 2024-03-28 08:51 | PM.OBPRVD ---
Events: Induced HTN Labor & Delivery Delivery date: 03/28/24 Delivery Time: 07:57 Intrapartal Events: None Cervical ripening method: per misoprostal protocol Induction method: other (miso only) Delivery monitor: external FHT Route of delivery: Episiotomy description: None L&D Laceration Description: Periurethral - 1st Degree, Perineal - 2nd Degree and Labial Delivery repair: vicryl Estimated blood loss (mL): 400 Anesthesia Type: Epidural Complications: shoulder dystocia Narrative: Patient is a 28 yo G1 now P1 who was induced for gestational hypertension. She was given 2 doses of vaginal misoprostol and progressed to complete within 10 hours. She requested epidural and one was placed. She was found to be complete at 7:30am. She pushed effectively for 20 minutes. Category 2 tracing during pushing for decelerations with pushing down to 90s. Head delivered in OA position at 7:57 and there was a shoulder dystocia noted. Patient was placed in [place] and suprapubic pressure was applied from the patient left. There was no movement with subrapubic pressure. Left arm was posterior and was manually removed relieving shoulder dystocia with in same minute of head delivering. Baby was vigorous with Apgars 9, 9. Terminal mec was noted. Cord was clamped and cut by mother at 3 minutes of life. Pitocin bolus was started prior to delivery of placenta. There was a second degree perineal/left side wall vaginal tear that was repaired with suture. A right labial/periurethral tear was repaired with suture. Fundus was firm with external massage. Bleeding was minimal. EBL 400. Plan for aftercare: Routine care
[2024-03-28] MEDS: ACETAMINOPHEN 325 MG TABLET 650 MG PO ×3 (09:47→21:41)
[2024-03-28] MEDS: DERMOPLAST SPRAY 20% 60 ML 1 SPRAY TOP (09:48)
[2024-03-28] MEDS: WITCH HAZEL/GLYCERIN PADS 1 EACH TOP (09:48)
[2024-03-28] MEDS: IBUPROFEN 600 MG TABLET PO ×3 (09:48→21:41)
[2024-03-29] MEDS: ACETAMINOPHEN 325 MG TABLET 650 MG PO (03:34)
[2024-03-29] MEDS: IBUPROFEN 600 MG TABLET PO (03:35)
--- NOTE | 2024-03-29 08:08 | P.DS_ITS ---
History of Present Illness History of Present Illness Chief complaint: induction Discharge Providers Provider Date of admission: 03/27/24 18:56 Primary care physician: Rashard Chavis MD Consults: 03/27/24 19:10 Consult to Anesthesiology Urgent Comment: Consulting Provider: Anesthesiologist Reason for consultation: Epidural 03/29/24 08:49 Consult to Environmental Intern Routine Comment: Discharge provider: Janette Wall MD Objective Labs 03/27/24 19:46 03/27/24 19:46 PFSH Medical History (Updated 02/12/24 @ 10:33 by Janette Wall MD) Wrist tendonitis (~2012) Ovarian cyst (~2018) Shingles Surgical History (Updated 09/29/23 @ 19:59 by Dipti Barry) Anesthesia History of tonsillectomy History of surgery on right wrist History of removal of skin mole History of tympanostomy Family History (Updated 09/29/23 @ 20:02 by Dipti Barry) Father Hyperlipidemia Hypertension History of heart disease Grandmother Breast cancer Skin cancer Anxiety Depression Mother Skin cancer Joint replaced Degenerative disc disease Depression Anxiety Mental health problem Grandfather Depression Anxiety Lung cancer Mental health problem Grandmother History of heart disease Hypertension Social History marital status: number of children: 0 household members: spouse lives independently: No caregiver/support person: No housing: house pets and animals: Yes (dog) education level: master's degree occupational status: employed current occupational exposures/hazards: No special katarzyna needs: No travel history: recent seatbelt use: always water heater temp set < 120 deg: Yes working smoke detector in home: Yes fire extinguisher in home: Yes carbon monox detector in home: Yes firearms in home: No do you feel safe at home: Yes Smoking Status: Never smoker second hand exposure: No alcohol intake: former substance use type: does not use during the past year weight has: remained stable well-balanced diet: daily or most days daily servings fruits/ve-4 caffeine: Yes Type(s) of exercise: walking, aerobic and weight lifting frequency: 5-6 times per week Discharge Plan Discharge Plan Patient Disposition: Home Discharge orders & Medications Follow up/Referrals: Rashard Chavis MD [Primary Care Provider] - Visit Report/Discharge Packet Stand Alone Forms: Patient Portal/API, Stroke Signs & Symptoms Discharge Data Primary Care Provider: Rashard Chavis
--- NOTE | 2024-03-29 15:23 | PM.OBDS.1 ---
Discharge Providers Provider Date of admission: 03/27/24 18:56 Discharge Date: 03/29/24 Primary care physician: Rashard Chavis MD Consults: 03/27/24 19:10 Consult to Anesthesiology Urgent Comment: Consulting Provider: Anesthesiologist Reason for consultation: Epidural 03/29/24 08:49 Consult to Wound/Ostomy Clinical Nurse Specialist Routine Comment: Discharge provider: Janette Wall MD Summary Hospital Course Date Patient Seen: 03/29/24 Time Patient Seen: 07:45 Diagnoses: Term Gestational hypertension Hospital Course: This is a 28 yo G1 now P1 who was induced for gestational hypertension. She delivered at 39w1d via . There was a shoulder dystocia relieved with removal of the psoterior arm. She is recovering well. Minimal bleeding or pain. She is without difficulty. She is undecided on contraception. She will follow up with me in 1 week for BP check. Peripartum Data Infant Delivery Method: Natural Vaginal Laceration Description: Periurethral - 1st Degree, Perineal - 2nd Degree and Labial complications: none Status at Discharge Cognitive/behavioral status at discharge: oriented Functional status at discharge: independent ambulation Overall status at discharge: patient is back to baseline Time Spent with Patient Time attestation: Total time spent providing and/or coordinating discharge services: 35 minutes Time spent: Greater than 30 minutes Objective Labs 03/27/24 19:46 03/27/24 19:46 Exam Narrative Exam Narrative: NAD, breathing easily. Discharge Plan Discharge Plan Patient Disposition: Home Discharge orders & Medications Follow up/Referrals: Rashard Chavis MD [Primary Care Provider] - Janette Wall MD [Physician] - (Incision check on April 04 @ 10am Post 6 week appt on 05/09/2024@1400) Visit Report/Discharge Packet Instructions: DI for Labor and Delivery, Vaginal Stand Alone Forms: Patient Portal/API, Stroke Signs & Symptoms Discharge Data Primary Care Provider: Rashard Chavis Discharges patient from system. Discharge Date/Time: 03/29/24 10:30
== END 2024-03-29 10:30 | disposition home or self-care (01) | DRG 807 ==
PROVIDERS: Admitting Provider Student in an Organized Health Care Education/Training Program; PCP Family Medicine; Referring Provider Student in an Organized Health Care Education/Training Program; Visit Provider Student in an Organized Health Care Education/Training Program
DX: O13.4 Gestational [pregnancy-induced] hypertension without significant proteinuria, complicating childbirth (principal); Z37.0 Single live birth; Z3A.39 39 weeks gestation of pregnancy; O70.1 Second degree perineal laceration during delivery
CPT/HCPCS: 36415; 59050; 59200; 59400; 80053; 82570; 84156; 85025; 86850; 86900; 86901; G0379; J3010

== ENCOUNTER → 2024-10-14 16:21 | Outpatient (CLI) | payer OTHER, SELFPAY ==
--- NOTE | 2024-10-14 16:22 | DI.US.S_ITS ---
PROCEDURE: US PELVIC COMPLETE INDICATIONS: ovarian cyts TECHNIQUE: Real-time scanning was performed of the pelvic organs, with image documentation. Additional endovaginal scanning was necessary due to incomplete visualization of the adnexal and endometrial structures by transabdominal scanning. COMPARISON: [facility], US, US PELVIC COMPLETE, 12/26/2022, 15:36. FINDINGS: Uterus: Uterus is anteverted and normal in size at 8.4 x 4.3 x 5.8 cm. The myometrium is homogeneous. The endometrium measures 8 mm combined thickness. Ovaries: The right ovary measures 3.9 x 2 x 3.3 cm, with a calculated ovarian volume of 13.3 cc. The left ovary measures 3.7 x 2.2 x 2.9 cm, with a calculated ovarian volume of 12.3 cc. The ovaries have a normal sonographic appearance. More than 12 follicles can be seen in each ovary. No adnexal masses are seen. Other: No pathologic free abdominal or pelvic fluid. IMPRESSION: More than 12 follicles can be seen involving each ovary, which is suggestive of polycystic ovarian syndrome. However, please correlate with clinical data. We strive to produce accurate, complete, and clear reports of imaging services. To assist us in improving patient care, this report was composed using standard report templates and voice recognition software. Therefore, it may contain abnormal punctuation, insertions and/or omissions. Occasional wrong-word or sound-alike substitutions may occur. Though we review the report and make efforts to correct it, we do recommend that the report be read carefully in proper context to recognize any text inaccuracies. Dictated by: Boni Watts M.D. on 10/14/2024 at 16:44 Approved by: Boni Watts M.D. on 10/14/2024 at 16:46
== END ==
PROVIDERS: PCP Student in an Organized Health Care Education/Training Program; Referring Provider Student in an Organized Health Care Education/Training Program; Visit Provider Student in an Organized Health Care Education/Training Program
DX: Z87.42 Personal history of other diseases of the female genital tract (principal)
CPT/HCPCS: 76856

== ENCOUNTER → 2025-02-07 15:40 | Outpatient (CLI) | payer OTHER, SELFPAY ==
--- NOTE | 2025-02-07 15:41 | DI.US.S_ITS ---
PROCEDURE: US PELVIC COMPLETE INDICATIONS: PCOS TECHNIQUE: Real-time scanning was performed of the pelvic organs, with image documentation. Additional endovaginal scanning was necessary due to incomplete visualization of the adnexal and endometrial structures by transabdominal scanning. COMPARISON: [facility], US, US PELVIC COMPLETE, 10/14/2024, 16:38. FINDINGS: Uterus: Uterus is anteverted and normal in size at 9.2 x 6.4 x 5 cm. The myometrium is homogeneous. The endometrium measures 14 mm combined thickness. No abnormal vascularity can be seen along the endometrial stripe. Ovaries: The right ovary measures 4 x 2.6 x 1.6 cm, with a calculated ovarian volume of 8.4 cc. The left ovary measures 3.8 x 3.9 x 2.4 cm, with a calculated ovarian volume of 18.7 cc. The ovaries have a normal sonographic appearance. More than 12 follicles can be seen in each ovary. No adnexal masses are seen. Other: A mild amount of free pelvic fluid is seen, which is considered to be within physiologic limits. IMPRESSION: More than 12 follicles are again seen involving the ovaries, which is consistent with the clinically given history of polycystic ovarian syndrome. The ovaries appear similar to the prior, although the left ovary measures larger on the current study than on the prior. We strive to produce accurate, complete, and clear reports of imaging services. To assist us in improving patient care, this report was composed using standard report templates and voice recognition software. Therefore, it may contain abnormal punctuation, insertions and/or omissions. Occasional wrong-word or sound-alike substitutions may occur. Though we review the report and make efforts to correct it, we do recommend that the report be read carefully in proper context to recognize any text inaccuracies. Dictated by: Boni Watts M.D. on 02/07/2025 at 16:08 Approved by: Boni Watts M.D. on 02/07/2025 at 16:10
== END ==
LOC: US 15:40
PROVIDERS: PCP Student in an Organized Health Care Education/Training Program; Referring Provider Student in an Organized Health Care Education/Training Program; Visit Provider Student in an Organized Health Care Education/Training Program
DX: E28.2 Polycystic ovarian syndrome (principal)
CPT/HCPCS: 76830; 76856